=== PATIENT | male | born 1970 | race Caucasian/White ===

== ENCOUNTER 2018-06-26 10:27 | Emergency (ER) | payer OTHER ==
[~2018-06-26] VITALS: Ht 170.2 cm; Wt 63.0 kg
[2018-06-26 10:49] VITALS: Ht 170.2 cm; Wt 63.0 kg
--- NOTE | 2018-06-26 10:52 | ERD ---
ER Documentation Chief Complaint Chief Complaint back pain, n/v and abdominal pain ROS All systems reviewed and are negative except as per history of present illness. Allergies Allergies: Coded Allergies: No Known Allergy (Unverified , 06/26/18) Physical Exam Vitals Vital Signs Date Temp Pulse Resp B/P (MAP) Pulse Ox O2 O2 Flow FiO2 Time Delivery Rate 06/26/18 97.8 110 18 154/110 98 10:49 (125) Physical Exam Const: No acute distress Head: Atraumatic Eyes: Normal Conjunctiva ENT: Normal External Ears, Nose and Mouth. Neck: Full range of motion. No meningismus. Resp: Clear to auscultation bilaterally Cardio: Regular rate and rhythm, no murmurs Abd: Soft, non tender, non distended. Normal bowel sounds Skin: No petechiae or rashes Back: No midline or flank tenderness Ext: No cyanosis, or edema Neur: Awake and alert Psych: Normal Mood and Affect Result Diagram: 06/26/18 1101 06/26/18 1101 Results 24 hrs Laboratory Tests Test 06/26/18 10:43 06/26/18 10:46 06/26/18 11:01 06/26/18 12:00 Blood Gas Blood venous Specimen Source Arterial Blood 06/26/2018 11:25: Date Drawn 41 AM Arterial Blood VENOUS LINE Gas Puncture Site Josue Test N/A Venous Blood pH 7.411 Venous Blood 26.0 mmHG pCO2 (Temp Corrected) Venous Blood pO2 45.3 mmHG (Temp Corrected) Venous Blood 16.1 mmol/L HCO3 Venous Blood 81.0 mmHG Oxygen Saturation Venous Blood -6.8 mmol/L Base Excess Venous Blood 13.7 g/dl Total Hemoglobin Venous Blood 80.4 % Oxyhemoglobin Venous Blood 0.3 % Methemoglobin Blood Gas A-a O2 73.3 mmHg Differential Carboxyhemoglobi 0.4 % n Blood Gas 37.0 C Temperature Blood Gas ROOM AIR Modality FiO2 21.0 % Blood Gas DR SOLIZ Critical Value Read Back Blood Gas TM Notified Whom Blood Gas 06/26/2018 11:41: Notified Time 02 AM Bedside Glucose 520 mg/dL White Blood 6.4 10^3/ul Count Red Blood Count 4.10 10^6/ul Hemoglobin 12.8 g/dl Hematocrit 37.0 % Mean Corpuscular 90.2 fl Volume Mean Corpuscular 31.2 pg Hemoglobin Mean Corpuscular 34.6 g/dl Hemoglobin Amy nt Red Cell 12.2 % Distribution Width Platelet Count 320 10^3/UL Mean Platelet 9.2 fl Volume Immature 0.200 % Granulocytes % Neutrophils % 66.1 % Lymphocytes % 23.1 % Monocytes % 8.1 % Eosinophils % 1.9 % Basophils % 0.6 % Nucleated Red 0.0 /100WBC Blood Cells % Immature 0.010 10^3/ul Granulocytes # Neutrophils # 4.2 10^3/ul Lymphocytes # 1.5 10^3/ul Monocytes # 0.5 10^3/ul Eosinophils # 0.1 10^3/ul Basophils # 0.0 10^3/ul Nucleated Red 0.0 10^3/ul Blood Cells # Sodium Level 134 mmol/L Potassium Level 4.2 mmol/L Chloride Level 97 mmol/L Carbon Dioxide 16 mmol/L Level Anion Gap 21 Blood Urea 9 mg/dl Nitrogen Creatinine 0.75 mg/dl Est Glomerular > 60 mL/min Filtrat Rate mL/min Glucose Level 522 mg/dl Hemoglobin A1c 9.3 % Calcium Level 9.8 mg/dl Phosphorus Level 3.7 mg/dl Magnesium Level 1.8 mg/dl Urine Color STRAW Urine Clarity CLEAR Urine pH 6.0 Urine Specific 1.028 Sunset Urine Ketones 2+ mg/dL Urine Nitrite NEGATIVE mg/dL Urine Bilirubin NEGATIVE mg/dL Urine NEGATIVE mg/dL Urobilinogen Urine Leukocyte NEGATIVE Loco/ul Esterase Urine 0 /HPF Microscopic RBC Urine 0 /HPF Microscopic WBC Urine Hemoglobin 1+ mg/dL Urine Glucose 3+ mg/dL Urine Total 1+ mg/dl Protein Current Medications Medications Dose Sig/Nyla Start Time Status Last (Trade) Ordered Route PRN Stop Time Admin Dose Reason Admin Sodium 1,000 ml @ ONCE ONCE 06/26/18 DC 06/26/18 Chloride 1,000 mls/hr IV 11:00 06/26/18 11:09 11:59 Potassium 1,000 ml @ Q0M IV 06/26/18 Chloride/Sodi 0 mls/hr 12:01 um Chloride Potassium 1,000 ml @ Q0M IV 06/26/18 Chloride/Dext 0 mls/hr 12:01 irena/ Sod Cl Potassium 1,000 ml @ Q0M IV 06/26/18 Chloride/Sodi 0 mls/hr 12:01 um Chloride Potassium 1,000 ml @ Q0M IV 06/26/18 Chloride/Dext 0 mls/hr 12:01 irena/ Sod Cl Sodium 1,000 ml @ Q0M IV 06/26/18 Chloride 0 mls/hr 12:01 1,000 ml @ Q0M IV 06/26/18 Dextrose/Sodi 0 mls/hr 12:01 um Chloride Insulin 101 ml @ ER DKA 06/26/18 Human 6.36 mls/hr PROTOCOL IV 12:30 Regular 100 unit/ Sodium Chloride Lactated 630 ml @ ONCE ONCE 06/26/18 DC 06/26/18 Ringer's 630 mls/hr IV 12:30 06/26/18 12:53 13:29 HYPOGLYCEM 06/26/18 Miscellaneous HYPOGLYCEMIA PROTOCOL PRN 12:30 TREATMENT XX Information .HYPOGLYCEMIA (* PROTOCOL Miscellaneous Pharmacy Order) Dextrose 50 ml Q15M PRN 06/26/18 (D50w IV 12:30 Syringe) .DECREASED GLUCOSE Dextrose 25 ml Q15M PRN 06/26/18 (D50w IV 12:30 Syringe) .DECREASED GLUCOSE 40 ml ONCE ONCE 06/26/18 06/26/18 Miscellaneous PO 14:00 06/26/18 13:49 Medication 14:01 (Gi Cocktail (2)) Loperamide 4 mg ONCE ONCE 06/26/18 06/26/18 HCl PO 14:00 06/26/18 13:49 (Imodium Cap) 14:01 Procedures/MDM DOCUMENTS REVIEWED: ED nurse, EMS. No prior records LAB INTERPRETATION: [] EKG: Time: [ ] My Interpretation IMAGING: [ ] ED COURSE: [] REEXAMINATION/REEVALUATION: Time: 14:05 MEDICAL DECISION MAKIN-year-old male with a history of insulin-dependent diabetes mellitus presents to the ED via rescue ambulance and [employer] custody complaining of 1 day history of mild, crampy, generalized abdominal pain with multiple episodes of nonbloody nonbilious emesis. Admits to noncompliance with his insulin.. The patient has made the decision to leave this Emergency Department and any ongoing care against the advice of the emergency physician. The patient has been informed of and verbalized understanding of the inherent risks of this decision, including , disability and []. The patient explained to me the reason for wanting to sign out against medical advice which was []. The patient was given alternative therapeutic options including []. The patient has the capacity to make this decision and accepts the responsibility of leaving at this time. The patient and all necessary parties have been advised that the patient may return at any time for further evaluation or treatment. The reanna mishra's condition at time of discharge is []. Counseled patient regarding diagnostic workup, diagnosis and need for followup. Understands to return to ED if symptoms recur, worsen or any other concerns. Departure Diagnosis: Primary Impression: Nausea and vomiting Vomiting type: unspecified Vomiting Intractability: unspecified Qualified Codes: R11.2 - Nausea with vomiting, unspecified Additional Impressions: Diabetic ketoacidosis associated with type 1 diabetes mellitus Diabetes mellitus complication detail: without coma Qualified Codes: E10.10 - Type 1 diabetes mellitus with ketoacidosis without coma Left against medical advice Condition: Serious TOMÁS SOLIZ MD June 26, 2018 10:52
[2018-06-26] MEDS ORDERED: SOD CHLORIDE 0.9% 1,000 ML IV ONE (11:00)
[2018-06-26] MEDS ORDERED: DEXTROSE 10%/0.45% NACL 1,000 ML IV SCH (12:01)
[2018-06-26] MEDS ORDERED: D10/0.45% NACL + KCL 40 MEQ 1,000 ML IV SCH (12:01)
[2018-06-26] MEDS ORDERED: D10/0.45% NACL + KCL 30 MEQ 1,000 ML IV SCH (12:01)
[2018-06-26] MEDS ORDERED: NS + KCL 30 MEQ 1,000 ML IV SCH (12:01)
[2018-06-26] MEDS ORDERED: SOD CHLORIDE 0.9% 1,000 ML IV SCH (12:01)
[2018-06-26] MEDS ORDERED: NS + KCL 40 MEQ 1,000 ML IV SCH (12:01)
[2018-06-26] MEDS ORDERED: DEXTROSE 50% 50 ML SYRINGE IV PRN ×2 (12:30)
[2018-06-26] MEDS ORDERED: INSULIN REGULAR, HUMAN 100 UNIT in SOD CHLORIDE 0.9% 100 ML IV SCH ×2 (12:30)
[2018-06-26] MEDS ORDERED: LACTATED RINGER'S 630 ML IV ONE (12:30)
[2018-06-26 13:43] VITALS: BP 155/99; PULSE 81; RESP 20
[2018-06-26] MEDS ORDERED: LOPERAMIDE 2 MG CAP PO ONE (14:00)
[2018-06-26] MEDS ORDERED: LIDOCAINE/MYLANTA 40 ML BTL PO ONE (14:00)
== END 2018-06-26 14:02 | disposition left against medical advice (07) ==
LOC: E/R 10:27
DX: R11.2 Nausea with vomiting, unspecified (principal); E10.10 Type 1 diabetes mellitus with ketoacidosis without coma
CPT/HCPCS: 36415; 80048; 81001; 82803; 82962; 83036; 83735; 84100; 85025; 99284; J1815; J3480; J7030; J7120